=== PATIENT | male | born 1950 | race Caucasian/White ===

== ENCOUNTER → 2019-06-03 09:08 | Outpatient (CLI) | payer MEDICARE, OTHER ==
[2016-04-17 09:31] VITALS: BMI 25.3
[~2019-06-03 09:08] MED LIST: ASPIRIN EC325 M1 PO; LIPITOR10 MG PO; NORITATE60 GM TP; TOPROL XL25 MG PO
== END | disposition home or self-care (01) ==
LOC: D.HCCECHO 09:08
PROVIDERS: ATTEND Internal Medicine Cardiovascular Disease
DX: I34.0 Nonrheumatic mitral (valve) insufficiency (principal)

== ENCOUNTER → 2021-02-15 10:05 | Outpatient (CLI) | payer MEDICARE ==
[2016-04-17 09:31] VITALS: BMI 25.3
== END | disposition home or self-care (01) ==
LOC: D.HCCECHO 10:05
PROVIDERS: ATTEND Internal Medicine Cardiovascular Disease
DX: I25.10 Atherosclerotic heart disease of native coronary artery without angina pectoris (principal)